=== PATIENT | female | born 1980 | race Caucasian/White ===

== ENCOUNTER 2019-01-17 14:36 | Outpatient (CLI) | payer MEDICARE ==
--- NOTE | 2019-01-17 15:07 | ULT ---
Exam: Right lower extremity venous ultrasound with Doppler HISTORY: Right leg edema. Swelling. COMPARISON: None TECHNIQUE: Grayscale, color, Doppler wave the right lower extremity venous system FINDINGS: There is compressibility, presence of flow and augmentation in the common femoral vein, femoral vein and popliteal vein. Flow and augmentation in the greater saphenous vein, profunda vein and posterior tibial vein. IMPRESSION: No thrombus in the right lower extremity deep venous system. Results of study conveyed to Dr. Spence via [employer] connect 01/17/2019 at 3:04 PM Code CR
== END 2019-01-17 14:37 | disposition home or self-care (01) ==
LOC: ULT 14:36
PROVIDERS: ATTEND Neurological Surgery
DX: R60.0 Localized edema (principal); M79.89 Other specified soft tissue disorders

== ENCOUNTER 2022-07-15 13:36 | Outpatient (CLI) | payer OTHER, MEDICAID | END 2022-07-15 13:37 | disposition home or self-care (01) | LOC: TBSIIMAG 13:36 | PROVIDERS: ATTEND Family Medicine | DX: M51.9 Unspecified thoracic, thoracolumbar and lumbosacral intervertebral disc disorder (principal); M96.1 Postlaminectomy syndrome, not elsewhere classified; M47.26 Other spondylosis with radiculopathy, lumbar region; M47.815 Spondylosis without myelopathy or radiculopathy, thoracolumbar region; M51.16 Intervertebral disc disorders with radiculopathy, lumbar region; M48.062 Spinal stenosis, lumbar region with neurogenic claudication; M51.37 Other intervertebral disc degeneration, lumbosacral region; M48.07 Spinal stenosis, lumbosacral region; M47.817 Spondylosis without myelopathy or radiculopathy, lumbosacral region | CPT/HCPCS: 72148 ==

== ENCOUNTER 2022-08-30 12:28 | Outpatient (CLI) | payer OTHER, MEDICAID | END 2022-08-30 12:29 | disposition home or self-care (01) | LOC: SCSMRI 12:28 | PROVIDERS: ATTEND Family Medicine | DX: M47.22 Other spondylosis with radiculopathy, cervical region (principal); M50.123 Cervical disc disorder at C6-C7 level with radiculopathy; M48.02 Spinal stenosis, cervical region; M48.03 Spinal stenosis, cervicothoracic region | CPT/HCPCS: 72141 ==

== ENCOUNTER 2022-11-09 05:40 | Observation (INO) | payer OTHER, MEDICAID ==
[2022-11-04 14:41] VITALS: BMI 22.1
[2022-11-09] MEDS ORDERED: Thrombin 5000 UNITS/5 ML VIAL ONE (06:10)
[2022-11-09] MEDS ORDERED: fentaNYL PF 100 MCG/2 ML SYRINGE ONE (06:12)
[2022-11-09] MEDS ORDERED: Levofloxacin 500 mg/D5W 100 ml Premix Bag ONE (06:50)
[2022-11-09] MEDS ORDERED: Clindamycin/D5W 900 mg/50 ml Premix Bag ONE (06:50)
[2022-11-09] MEDS ORDERED: Fentanyl 250 MCG/5 ML VIAL ONE (06:53)
[2022-11-09] MEDS ORDERED: Ondansetron PF 4 MG/2 ML Vial ONE ×2 (07:19→14:45)
[2022-11-09] MEDS ORDERED: Rocuronium Bromide 10 MG/ML (10ML VIAL) ONE (07:19)
[2022-11-09] MEDS ORDERED: PROPOFOL 200 MG/20 ML VIAL ONE (07:19)
[2022-11-09] MEDS ORDERED: Dexamethasone 20 MG/5 ML VIAL ONE (07:19)
[2022-11-09] MEDS ORDERED: Lidocaine 1% PF 5 ML VIAL ONE (07:19)
[2022-11-09] MEDS ORDERED: PHENYLEPHRINE-NS 100 MCG/ML 10 ML SYRINGE ONE (07:19)
[2022-11-09] MEDS ORDERED: Promethazine HCl 25 MG/ML VIAL IM PRN (08:54)
[2022-11-09] MEDS ORDERED: Ondansetron HCl/PF 4 MG/2 ML Vial IVP PRN (08:54)
[2022-11-09] MEDS ORDERED: fentaNYL 50 mcg/mL 1 mL Vial ONE ×4 (10:03→12:24)
[2022-11-09] MEDS ORDERED: Midazolam HCl 2 mg/2 ml Vial ONE ×2 (10:15→10:43)
[2022-11-09] MEDS ORDERED: Oxymetazoline HCl 0.05% (30 ML BOT) ONE (10:55)
[2022-11-09] MEDS ORDERED: Morphine 2 MG/ML VIAL ONE ×2 (12:05→12:20)
[2022-11-09] MEDS ORDERED: oxyCODONE 5 MG TAB ONE (12:16)
[2022-11-09] MEDS ORDERED: oxyCODONE/Acetaminophen 5 mg/325 mg Tablet PO SCH (12:45)
[2022-11-09] MEDS ORDERED: oxyCODONE/Acetaminophen 5 mg/325 mg Tablet PO PRN (14:40)
[2022-11-09] MEDS ORDERED: Bisacodyl 10 MG SUPP PR PRN (14:40)
[2022-11-09] MEDS ORDERED: diphenhydrAMINE 50 MG/ML VIAL IVP PRN (14:40)
[2022-11-09] MEDS ORDERED: Cyclobenzaprine 10 MG TAB PO PRN (14:40)
[2022-11-09] MEDS ORDERED: Acetaminophen 325 MG TAB PO PRN (14:40)
[2022-11-09] MEDS ORDERED: Morphine 2 MG/ML VIAL SLOW IVP PRN (14:40)
[2022-11-09] MEDS ORDERED: Ondansetron PF 4 MG/2 ML Vial IVP PRN (14:40)
[2022-11-09] MEDS ORDERED: valACYclovir 500 MG TAB PO PRN (14:43)
[2022-11-09] MEDS ORDERED: Rimegepant Sulfate [Nurtec Odt] 75 MG Tab.Rapdis PO PRN (15:47)
[2022-11-09] MEDS ORDERED: Morphine 4 MG/ML VIAL SLOW IVP PRN (15:51)
[2022-11-09] MEDS ORDERED: traMADol HCl 50 MG TAB PO PRN ×2 (16:00)
[2022-11-09] MEDS: Sodium Chloride 0.9% 1,000 ML IV SCH (16:23)
[2022-11-09] MEDS: Clindamycin/D5W 900 MG in Premix Bag 1 BAG IVPB SCH ×2 (16:23→23:21)
[2022-11-09] MEDS: Dexamethasone 4 MG TAB PO SCH ×2 (16:24→20:13)
[2022-11-09] MEDS: oxyCODONE/Acetaminophen 5 mg/325 mg Tablet PO PRN (17:48)
[2022-11-09] MEDS: Gabapentin 400 MG CAP PO SCH (20:13)
[2022-11-09] MEDS ORDERED: tiZANidine HCl 4 MG TAB PO PRN (20:44)
[2022-11-09] MEDS ORDERED: Escitalopram Oxalate 20 mg Tablet PO SCH (21:00)
[2022-11-09] MEDS: fentaNYL 50 mcg/mL 1 mL Vial SLOW IVP PRN (22:07)
[2022-11-10] MEDS: oxyCODONE/Acetaminophen 5 mg/325 mg Tablet PO PRN ×2 (03:27→15:58)
[2022-11-10] MEDS: Sodium Chloride 0.9% 1,000 ML IV SCH (03:28)
[2022-11-10] MEDS ORDERED: Phenol 118 ML BOT PO PRN (08:00)
[2022-11-10] MEDS: Ondansetron PF 4 MG/2 ML Vial IVP SCH ×2 (08:18→14:46)
[2022-11-10] MEDS: Dexamethasone 4 MG TAB PO SCH ×2 (08:20→14:46)
[2022-11-10] MEDS: Phenol 118 ML BOT PO PRN ×2 (08:29→16:00)
[2022-11-10] MEDS: fentaNYL 50 mcg/mL 1 mL Vial SLOW IVP PRN ×2 (08:29→14:43)
[2022-11-10] MEDS ORDERED: Nicotine 7 MG PATCH TD SCH (09:00)
[2022-11-10] MEDS ORDERED: ALPRAZolam 1 MG TAB PO SCH (09:00)
[2022-11-10] MEDS: Gabapentin 400 MG CAP PO SCH ×2 (09:49→14:46)
[2022-11-10 15:47] VITALS: BP 123/72; TEMP 98.4
== END 2022-11-10 16:00 | disposition home or self-care (01) ==
LOC: SDC 05:40 → SURG B 15:19
PROVIDERS: ADMIT Neurological Surgery; ATTEND Neurological Surgery
PROC: 0RG10A0 Fusion of Cervical Vertebral Joint with Interbody Fusion Device, Anterior Approach, Anterior Column, Open Approach (ICD-10-PCS; principal; 2022-11-09)
DX: M54.12 Radiculopathy, cervical region (principal)
CPT/HCPCS: 20931; 20936; 22551; 22845; 22853; C1713 ×3; C1889; J3010 ×2; 96374; 96375; 96376; G0378; J1100; J1956; J2250; J2272; J2405; J2704; J3490; J7050; J8540

== ENCOUNTER 2022-12-25 04:19 | Emergency (ER) | payer OTHER, MEDICAID ==
[2022-12-25] MEDS ORDERED: diphenhydrAMINE 50 MG/ML VIAL ONE (04:37)
[2022-12-25] MEDS ORDERED: Metoclopramide HCl 10 MG/2 ML VIAL ONE (04:37)
[2022-12-25] MEDS ORDERED: Ketorolac Tromethamine 30 MG/ML VIAL ONE (04:37)
[2022-12-25] MEDS ORDERED: Haloperidol Lactate 5 MG/ML VIAL ONE (04:57)
[2022-12-25 05:39] LABS: BHCG - Serum Negative (NEGATIVE); Pregs Control Background? CLEAR/WHITE (CLR/WHITE); Pregs Control Bar Appear? YES (CONTROL BAR)
[2022-12-25 05:50] LABS: Acetaminophen Less than 10 mcg/mL (10.0-30.0); Alcohol Less than 10.0 mg/dL (Less than 10); Salicylate Less than 8.0 mg/dL (15.0-30.0)
[2022-12-25 05:53] LABS: ALT (SGPT) 13 U/L (8-55); AST (SGOT) 12 U/L (5-34); Albumin 4.1 g/dL (3.5-5.0); Alkaline Phosphatase 55 U/L (40-110); Anion Gap 11 mmol/L (10-20); BUN (Urea Nitrogen) 14 mg/dL (7.0-18.7); Bilirubin, Total 0.2 mg/dL (0.2-1.2); Calc. Creatinine Clearance 0 mL/min (70-130); Calcium 9.2 mg/dL (7.8-10.44); Carbon Dioxide 23 mmol/L (22-29); Chloride 106 mmol/L (98-107); Estimated GFR 100; Globulin 2.4 g/dL (2.4-3.5); Glucose 78 mg/dL (70-105); Potassium 3.7 mmol/L (3.5-5.1); Protein, Total 6.5 g/dL (6.0-8.3); Sodium 136 mmol/L (136-145)
[2022-12-25 06:42] LABS: #Basophils 0.1 thou/uL (0.0-0.2); #Eosinphils 0.2 thou/uL (0.0-0.7); #Neutrophils 9.1 thou/uL (1.40-6.50); %Basophils 0.7 % (0.0-1.0); %Eosinophils 1.6 % (0.0-10.0); %Lymphocytes 19.1 % (21.0-51.0); %Monocytes 7.6 % (0.0-10.0); %Neutrophils 70.5 % (42.0-75.0); Hemoglobin 14.3 g/dL (12.0-16.0); Mean Corpuscular HGB CONC 32.2 g/dL (32.0-36.0); Mean Corpuscular Volume 96.1 fl (78.0-98.0); Mean Platelet Volume 10.2 fL (7.4-10.4); Platelet Count 274 10x3/uL (130-400); RBC Distribution Width 12.7 % (11.5-14.5); Red Blood Cell (RBC) Count 4.62 mill/uL (4.20-5.40); White Blood Cell (WBC) Count 12.9 10x3/uL (4.8-10.8)
[2022-12-25] MEDS ORDERED: Iopamidol-370 76% 500 ML MDV (1 ML CHARGE) ONE (11:43)
== END 2022-12-25 08:01 | disposition home or self-care (01) ==
LOC: ERS 04:19
DX: R51.9 Headache, unspecified (principal); R11.2 Nausea with vomiting, unspecified; I10 Essential (primary) hypertension; F17.290 Nicotine dependence, other tobacco product, uncomplicated
CPT/HCPCS: 36415; 70491; 80053; 80307; 84703; 85025; 96365; 96375; J1200; J1630; J1885; J2765; Q9967

== ENCOUNTER 2023-06-15 14:56 | Outpatient (CLI) | payer OTHER | END 2023-06-15 14:57 | disposition home or self-care (01) | LOC: BICMRI 14:56 | PROVIDERS: ATTEND Family Medicine | DX: M47.22 Other spondylosis with radiculopathy, cervical region (principal); M48.02 Spinal stenosis, cervical region; Z98.1 Arthrodesis status | CPT/HCPCS: 72040; 72141 ==